=== PATIENT | female | born 1955 | race Caucasian/White ===

== ENCOUNTER 2020-02-14 10:01 | Emergency (ER) | payer OTHER ==
[~2020-02-14] VITALS: Ht 160 cm; Wt 104.8 kg
[~2020-02-14 10:01] MED LIST: METFORMIN HCL500 MG PO; MOBIC15 MG PO; PEPCID40 MG PO; PREDNISONE 20 M20 M1 PO; SYNTHROID88 MCG PO; ZIAC 2.5-6.251 EACH PO; ZOLOFT25 MG PO
[2020-02-14 10:28] LABS: URINE BLOOD 2+ (Negative); URINE CLARITY CLEAR; URINE COLOR YELLOW; URINE GLUCOSE-RANDOM NEGATIVE (Negative); URINE KETONES NEGATIVE (Negative); URINE NITRITE-REFLEX NEGATIVE (Negative); URINE PROTEIN TRACE (Negative); URINE SPECIFIC GRAVITY 1.025 (1.005-1.030); URINE UROBILINOGEN 0.2 E.U./dl (0.2-1.0)
[2020-02-14 10:31] LABS: ICTOTEST (BILI CONFIRMATORY) Negative (Negative); URINE BILIRUBIN 1+ (Negative); URINE LEUKOCYTES-REFLEX 2+ (Negative)
[2020-02-14 10:41] LABS: CASTS None Seen /LPF (None Seen); CRYSTALS None Seen /LPF (None Seen); MUCUS 4-6 Moderate strn/LPF (None Seen); SQUAMOUS 4-10 Moderate /LPF (0-3); URINE RBC 3-10 Few /HPF (0-2)
[2020-02-14 10:46] LABS: ABSOLUTE BASOPHILS 0.1 thou/uL (0.0-0.2); ABSOLUTE EOSINOPHILS 0.2 thou/uL (0.0-0.7); ABSOLUTE LYMPHOCYTES 2.2 thou/uL (0.8-5.3); ABSOLUTE MONOCYTES 0.5 thou/uL (0.0-1.2); ABSOLUTE NEUTROPHILS 2.7 thou/uL (1.6-8.1); BASOPHILS 1.2 %; EOSINOPHILS 2.7 %; HEMATOCRIT 43.5 % (37.0-47.0); HEMOGLOBIN 14.4 gm/dL (12.0-15.0); LYMPHOCYTES 39.2 %; MCH 29.6 pg (26.0-34.0); MCHC 33.2 g/dL (28.0-37.0); MCV 89.3 fL (80.0-100.0); MONOCYTES 8.5 %; MPV 7.7 fl. (7.2-11.1); NUCLEATED RBCS 0 /100WBC; PLATELET COUNT* 253 thou/uL (150-400); POLYS 48.4 %; RBC 4.87 mil/uL (4.20-5.00); RDW-CV 13.3 % (10.5-14.5); WBC 5.7 thou/uL (4.0-11.0)
[2020-02-14 11:05] LABS: CALCIUM 9.3 mg/dL (8.5-10.1)
[2020-02-14 11:05] LABS: INFLUENZA A ANTIGEN Negative (Negative); INFLUENZA B ANTIGEN Negative (Negative)
[2020-02-14 11:10] LABS: ALBUMIN 3.9 g/dL (3.4-5.0); TOTAL BILIRUBIN 0.6 mg/dL (<0.1-1.0); TOTAL PROTEIN 7.1 g/dL (6.4-8.2)
[2020-02-14] MEDS ORDERED: KEFLEX500 M1 PO (11:20)
[2020-02-14] MEDS ORDERED: NORCO 5-325 TA1 EAC2 PO (11:20)
[2020-02-14] MEDS ORDERED: ONDANSETRON HCL4 M2 PO (11:20)
[2020-02-14 12:13] VITALS: BP 124/91
--- NOTE | 2020-02-14 14:59 | EKG ---
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[employer]ing: [facility] : 1955 Requested By: Morenita Ring Order Number: [id number] MD: Greg Sanchez Measurements Intervals [place] Rate: 60 P: 18 [place]: 211 QRS: -17 QRSD: 104 T: 4 QT: 440 QTc: 440 Interpretive Statements Sinus rhythm Probable left ventricular hypertrophy, by voltage Inferior infarct, old No previous ECG available for comparison Electronically Signed On 02-14-2020 14:59:00 [employer] by Greg Sanchez [email or web address] <ELECTRONICALLY SIGNED> By: Greg Sanchez MD, [facility] 02/14/20 1459 1037 1037 Greg Sanchez MD, FACC /EPI
== END 2020-02-14 12:14 | disposition home or self-care (01) ==
LOC: M.ERS 10:01
PROVIDERS: Nurse Practitioner Family
DX: N39.0 Urinary tract infection, site not specified (principal); Z20.828 Contact with and (suspected) exposure to other viral communicable diseases; B27.90 Infectious mononucleosis, unspecified without complication; E11.9 Type 2 diabetes mellitus without complications; E03.9 Hypothyroidism, unspecified; I10 Essential (primary) hypertension; M19.90 Unspecified osteoarthritis, unspecified site; K21.9 Gastro-esophageal reflux disease without esophagitis; Z79.899 Other long term (current) drug therapy; Z88.2 Allergy status to sulfonamides

== ENCOUNTER 2020-02-16 02:40 | Emergency (ER) | payer OTHER ==
[~2020-02-16] VITALS: Ht 160 cm; Wt 105.2 kg
[~2020-02-16 02:40] MED LIST changes: +KEFLEX500 M1 PO; +NORCO 5-325 TA1 EAC2 PO; +ONDANSETRON HCL4 M2 PO
[2020-02-16 03:18] LABS: ABSOLUTE BASOPHILS 0.1 thou/uL (0.0-0.2); ABSOLUTE EOSINOPHILS 0.1 thou/uL (0.0-0.7); ABSOLUTE LYMPHOCYTES 2.2 thou/uL (0.8-5.3); ABSOLUTE MONOCYTES 0.5 thou/uL (0.0-1.2); ABSOLUTE NEUTROPHILS 2.9 thou/uL (1.6-8.1); BASOPHILS 1.1 %; EOSINOPHILS 1.5 %; HEMATOCRIT 40.6 % (37.0-47.0); HEMOGLOBIN 13.5 gm/dL (12.0-15.0); LYMPHOCYTES 37.8 %; MCH 29.2 pg (26.0-34.0); MCHC 33.2 g/dL (28.0-37.0); MONOCYTES 8.6 %; MPV 7.5 fl. (7.2-11.1); NUCLEATED RBCS 0 /100WBC; PLATELET COUNT* 243 thou/uL (150-400); RBC 4.61 mil/uL (4.20-5.00); RDW-CV 13.2 % (10.5-14.5); WBC 5.8 thou/uL (4.0-11.0)
[2020-02-16 03:43] LABS: INFLUENZA A ANTIGEN Negative (Negative); INFLUENZA B ANTIGEN Negative (Negative)
[2020-02-16 04:02] LABS: CALCIUM 8.8 mg/dL (8.5-10.1); POTASSIUM 3.3 mmol/L (3.5-5.1)
[2020-02-16 04:12] LABS: ALBUMIN 3.6 g/dL (3.4-5.0); TOTAL BILIRUBIN 0.6 mg/dL (<0.1-1.0); TOTAL PROTEIN 7.1 g/dL (6.4-8.2)
[2020-02-16] MEDS ORDERED: CHLORPROMAZINE25 M1 PO (06:58)
[2020-02-16 07:10] VITALS: BP 130/58
--- NOTE | 2020-02-16 16:39 | EKG ---
[place] [address] ELECTROCARDIOGRAM REPORT Name: TYREL URENA Room: [facility]#: [id number] Admission: 02/16/20 Attend Phys: Discharge: 02/16/20 Date of : 57 Date of Service: 02/16/20 0246 Report #: [id number] THIS REPORT FOR: //name// [facility] ED Test Date: 2020-02-16 Test Time: 02:46:20 Pat Name: TYREL URENA Department: Room: Gender: F [place]: : 1955 Requested By: Lydia Doyle Order Number: [id number] MD: Sabino Damon Measurements Intervals [place] Rate: 59 P: 31 [place]: 207 QRS: 1 QRSD: 97 T: 19 QT: 435 QTc: 431 Interpretive Statements Sinus rhythm Isolated Q-wave in lead III Compared to ECG 02/14/2020 10:37:42 Myocardial infarct finding no longer present Electronically Signed On 02-16-2020 16:38:50 [employer] by Sabino Damon [email or web address] <ELECTRONICALLY SIGNED> By: Sabino Damon MD, [facility] 02/16/20 1638 0246 0246 Sabino Damon MD, [facility] /EPI
== END 2020-02-16 07:10 | disposition home or self-care (01) ==
LOC: M.ERS 02:40
PROVIDERS: Personal Emergency Response Attendant
DX: R06.6 Hiccough (principal); B27.90 Infectious mononucleosis, unspecified without complication; R06.02 Shortness of breath; Z20.828 Contact with and (suspected) exposure to other viral communicable diseases; E11.9 Type 2 diabetes mellitus without complications; I10 Essential (primary) hypertension; K21.9 Gastro-esophageal reflux disease without esophagitis; M19.90 Unspecified osteoarthritis, unspecified site; Z88.2 Allergy status to sulfonamides